=== PATIENT | female | born 1995 | race Hispanic/Latino ===

== ENCOUNTER 2017-08-19 23:04 | Emergency (ER) | payer OTHER ==
[2017-08-19 23:16] VITALS: RESP 16; TEMP 98.4
[2017-08-19] MEDS ORDERED: Penicillin G Benzathine 1.2 Mill Unit/2 ml Syr IM STA (23:56)
--- NOTE | 2017-08-20 00:34 | ED PDOC ---
Arrival/HPI - General Chief Complaint: ENT Problem Time Seen by Provider: 08/19/17 23:55 Historian: Patient - History of Present Illness Narrative History of Present Illness (Text): 08/20/17 00:29 22 yo F presents c/o sore throat and fever x 3 days. States that she had a throat culture done 4 days ago and was told yesterday that the results were (+) and was Rx augmentin. Denies any chills, rash, productive cough, N/V/D or any additional complaints. PMD [place] Past Medical History - Provider Review Nursing Documentation Reviewed: Yes - Infectious Disease Hx of Infectious Diseases: None - Psychiatric Hx Substance Use: No - Anesthesia Hx Anesthesia: No Family/Social History - Physician Review Nursing Documentation Reviewed: Yes Family/Social History: No Known Family HX Smoking Status: Never Smoked Hx Alcohol Use: No Hx Substance Use: No Allergies/Home Meds Allergies/Adverse Reactions: Allergies No Known Allergies Allergy (Verified 08/19/17 23:15) Home Medications: Home Meds Medication Instructions Recorded Confirmed Amoxicillin/Potassium Clav 1 tab PO Q12 08/19/17 08/19/17 [Augmentin 500 mg-125 mg] Review of Systems - Review of Systems Constitutional: Normal. absent: Fatigue, Weight Change, Fevers ENT: Normal, Sore Throat. absent: Rhinorrhea, Sinus Congestion Respiratory: Normal, Cough. absent: SOB, Sputum, Wheezing Cardiovascular: Normal. absent: Chest Pain, Palpitations, Edema Musculoskeletal: Normal. absent: Arthralgias, Back Pain, Neck Pain Skin: Normal. absent: Rash, Pruritis, Skin Lesions Physical Exam - Physical Exam Narrative Physical Exam (Text): 08/20/17 00:31 GENERAL APPEARANCE: Patient is awake, alert, oriented x 3, in mild distress. SKIN: Warm, dry; (-) cyanosis, (-) rash. (-) Decubitus Ulcer EYES: (-) conjunctival pallor, (-) scleral icterus, (-) conjunctival hemorrhage. ENMT: Mucous membranes moist. TMs: (-) erythema. Airway patent: (-) stridor. Pharynx: (+) moderate erythema, (+) moderate exudate. NECK: (-) tenderness, (-) stiffness, (-) meningismus, (+) non-tender lymphadenopathy. CHEST AND RESPIRATORY: (-) accessory muscle use. Lungs: (-) rales, (-) rhonchi, (-) wheezes, (-) rub; breath sounds equal bilaterally. HEART AND CARDIOVASCULAR: (-) irregularity; (-) murmur, (-) gallop, (-) rub. ABDOMEN AND GI: Soft; (-) tenderness, (-) guarding; (-) organomegaly; (-) mass ; (-) CVA tenderness. EXTREMITIES: (-) deformity; (-) cellulitis, (-) lymphangitis; (-) subungual hemorrhage; (-) edema. NEURO AND PSYCH: Mental status as above; (-) focal findings. Vital Signs Temp Pulse Resp BP Pulse Ox 08/20/17 00:43 98.4 F 72 16 147/78 97 08/19/17 23:12 98.4 F 100 H 16 100/62 100 Medical Decision Making ED Course and Treatment: 08/20/17 00:31 22 yo F presents c/o sore throat and fever x 3 days, currently taking augmentin. Plan : - PCN 1.2 million units IM - Decadron 10 mg IM - Zofran 4 mg ODT - Ibuprofen 600 mg PO - Viscous lidocaine PO On re-evaluation, patient reports improvement of symptoms. Patient is speaking in full sentences, no drooling, no respiratory distress. Dx of strep throat d/w the patient. Patient advised to d/w augmentin, she feels comfortable with current plan of treamtnet. Advised to drink plenty of fluids, bedrest. Follow up with primary care physician in 1-2 days without fail. Advised to take medication as prescribed. Return to the emergency room at any time for any new or worsening symptoms. Patient states she fully agrees with and understands discharge instructions. States that she agrees with the plan and disposition. Verbalized and repeated discharge instructions and plan. I have given the patient opportunity to ask any additional questions. - Medication Orders Current Medication Orders: Discontinued Medications Dexamethasone (Decadron Inj) 10 mg IM STAT STA Stop: 08/19/17 23:57 Last Admin: 08/20/17 00:13 Dose: 10 mg IM Administration Charges Document 08/20/17 00:13 LAC (Rec: 08/20/17 00:13 LAC [facility] [id number]) Injection Site MAR Injection Site Left Deltoid Charges for Administration # of IM Administrations 1 Ibuprofen (Motrin Oral Susp) 600 mg PO STAT STA Stop: 08/19/17 23:57 Last Admin: 08/20/17 00:13 Dose: 600 mg MAR Pain/Vitals Document 08/20/17 00:13 LAC (Rec: 08/20/17 00:13 LAC [facility] [id number]) Pain Reassessment Is This A Pain ReAssessment? No Lidocaine HCl (Lidocaine 2% Viscous) 15 ml MM STAT STA Stop: 08/20/17 00:45 Last Admin: 08/20/17 00:50 Dose: 15 ml Ondansetron HCl (Zofran Odt) 4 mg PO STAT STA Stop: 08/19/17 23:57 Last Admin: 08/20/17 00:13 Dose: 4 mg Penicillin G Benzathine (Bicillin L-A Inj) 1,200,000 units IM STAT STA PRN Reason: Protocol Stop: 08/19/17 23:57 Last Admin: 08/20/17 00:30 Dose: 1,200,000 units IM Administration Charges Document 08/20/17 00:30 LAC (Rec: 08/20/17 00:31 LAC [facility] [id number]) Injection Site MAR Injection Site Right Gluteus Polo Charges for Administration # of IM Administrations 1 - PA / PATROL MAN / Resident Statement / has reviewed & agrees with the documentation as recorded. Disposition/Present on Arrival - Present on Arrival Any Indicators Present on Arrival: No History of DVT/PE: No History of Uncontrolled Diabetes: No Urinary Catheter: No History of Decub. Ulcer: No History Surgical Site Infection Following: None - Disposition Have Diagnosis and Disposition been Completed?: Yes Diagnosis: Pharyngitis Disposition: HOME/ ROUTINE Disposition Time: 00:34 Patient Plan: Discharge Patient Problems: Current Active Problems Problem Status Onset Pharyngitis Acute Condition: STABLE Discharge Instructions (ExitCare): Pharyngitis (ED) Print Language: TRINIDADIAN Additional Instructions: Thank you for letting us take care of you today. You were treated for pharyngitis. The emergency medical care you received today was directed at your acute symptoms. If you were prescribed any medication, please fill it and take as directed. It may take several days for your symptoms to resolve. Return to the Emergency Department if your symptoms worsen, do not improve, or if you have any other problems. Please contact your doctor in 2 days for re-evaluation and follow up. Bring any paperwork you were given at discharge with you along with any medications you are taking to your follow up visit. Our treatment cannot replace ongoing medical care by a primary care provider (PCP) outside of the emergency department. Thank you for allowing the [email or web address] team to be part of your care today. Prescriptions: Mag&Al/Simet/Diphen/Lido [First Magic Mouthwash] 5 ml MM TID PRN #1 kit PRN Reason: Other Ondansetron ODT [Zofran ODT] 4 mg PO DAILY PRN #20 odt PRN Reason: Nausea/Vomiting Referrals: Evangelina Hurley MD [Primary Care Provider] - Follow up with primary Forms: [email or web address] ([place]), WORK NOTE, SCHOOL NOTE
[2017-08-20 00:43] VITALS: BP 147/78; PULSE 72; O2SAT 97
== END 2017-08-20 00:41 | disposition home or self-care (01) ==
LOC: ED 23:04
DX: J02.9 Acute pharyngitis, unspecified (principal)
CPT/HCPCS: 96372; 99283; J0561; J1100